=== PATIENT | female | born 1990 | race Caucasian/White ===

== ENCOUNTER 2023-10-31 07:56 | Emergency (ER) | payer OTHER ==
[2023-10-31] MEDS: MORPHINE 2 MG/ML CARPUJECT IVP STA (08:19)
--- NOTE | 2023-10-31 09:06 | XRAY Report ---
PROCEDURE: Mandible 4+V BL INDICATIONS: R jaw pain/concern for dislocation TECHNIQUE: 4 views of the mandible were acquired. COMPARISON: None FINDINGS: Bones: No fractures. Suggestion of unilateral anterior subluxation of one of the mandibular condyles at the TMJ joint. No suspicious bony lesions. Soft tissues: Visualized sinuses appear clear. No suspicious soft tissue densities. IMPRESSION: Suggestion of the lateral subluxation of one of the mandibular condyles at the TMJ joint (likely the right side) Comment: Consider TMJ protocol MRI. Reviewed by: Rafael Hernández MD on 10/31/2023 9:05 AM PDT Approved by: Rafael Hernández MD on 10/31/2023 9:05 AM PDT Station ID: [id number]
[2023-10-31] MEDS: PROPOFOL 200 MG/20 ML VIAL IVP STA (09:30)
--- NOTE | 2023-10-31 09:51 | ED Physician Documentation ---
PD HPI HEENT - Stated complaint Stated Complaint: LOCK JAW - Chief complaint Chief Complaint: Heent - History obtained from History obtained from: Patient - Additional information Additional information: Patient is a 33-year-old female with no significant past medical history presenting for evaluation of right jaw pain starting 2 hours ago. Patient states she yawned this morning and felt discomfort in her right jaw and has not been able to close her mouth since. She has had this happen before but usually goes away after a few minutes.No trauma. Review of Systems Constitutional: denies: Fever Throat: reports: Other (Jaw pain) Cardiac: denies: Chest pain / pressure Respiratory: denies: Dyspnea PD PAST MEDICAL HISTORY - Past Medical History Past Medical History: No - Past Surgical History Past Surgical History: No - Allergies Allergies/Adverse Reactions: Allergies Allergy/AdvReac Type Severity Reaction Status Date / Time No Known Drug Allergies Allergy Verified 10/31/23 08:05 - Social History Does the pt smoke?: No Smoking Status: Never smoker Does the pt drink ETOH?: Yes Does the pt have substance abuse?: No - Immunizations Immunizations are current?: Yes PD ED PE NORMAL - General General: Alert and oriented X 3, No acute distress, Well developed/nourished - HEENT HEENT: Moist mucous membranes, Pharynx benign, Other (Tender night deformity present with asymmetry of the mandible, tenderness over the coronoid process of the right mandibular) - Neck Neck: Supple, no meningeal sign - Cardiac Cardiac: RRR - Respiratory Respiratory: No respiratory distress, Clear bilaterally - Derm Derm: Warm and dry Results - Vitals Vitals: Vital Signs - 24 hr 10/31/23 10/31/23 10/31/23 08:02 09:25 09:35 Temperature 36.7 C Heart Rate 74 76 94 Respiratory 16 18 22 Rate Blood Pressure 122/89 H 146/117 H 149/84 H O2 Saturation 99 100 100 If not protocol 2 2 : Oxygen Flow, liters/minute 10/31/23 10/31/23 10/31/23 09:40 09:44 09:59 Temperature Heart Rate 94 90 62 Respiratory 18 16 18 Rate Blood Pressure 118/107 H 117/81 H O2 Saturation 98 100 If not protocol : Oxygen Flow, liters/minute Oxygen O2 Source Room air Procedures - Reduction Body part reduced: Right, Other (Mandible) Fracture or dislocation: Dislocation Anesthesia: Morphine, Other (Propofol) Reduction aftercare: Alignment improved, Patient tolerated well - Procedural sedation Sedation prep: Informed consent, Time out completed, Last meal, PE performed, ASA 1 - healthy Sedation Medications: propofol (130mg) Mallampati classification: II Patient status during sedation: Drowsy, Responds to tactile Sedation recovery: Recovered uneventfully Time in sedation (Minutes): 10 PD Medical Decision Making - ED course Complexity details: reviewed results, re-evaluated patient, d/w patient ED course: Patient presenting with right-sided jaw pain after yawning and unable to close her mouth. Suspect dislocation which was confirmed with x-rays that I reviewed. Patient was given IV morphine for pain. Patient unable to tolerate Attempts at reduction with syringe technique or extraoral pressure. Therefore she was consented for procedural deep sedation. Patient received 130 mg total of propofol with successful reduction of jaw dislocation. She is able to close her mouth fully and speak normally. Her teeth feel aligned. She does have a small abrasion to the right lower lip. Discussed precautions given her jaw dislocation today and need for follow-up. Patient and has been advised on concerning symptoms to return for. Departure - Departure Disposition: 01 Home, Self Care Clinical Impression: Dislocated mandible Condition: Stable Instructions: ED Sedation Procedural Discon, ED Dislocation Mandible Comments: Kirbi - You were treated for a jaw dislocation on the right side. In order to reduce the dislocation we did have to give you medicine to make you sleepy. For the next 1 to 2 weeks I would recommend a soft diet so that you are not needing to chew your food as much. In addition you should take any anti-inflammatory such as Ibuprofen or naproxen with food for the next few days to help with inflammation and discomfort. It is important that you avoid any movements that could cause another dislocation. Follow-up with your primary care provider. Return to the ER with any worsening symptoms. Forms: PCP List, Activity restrictions
[2023-10-31] MEDS: KETOROLAC 30 MG/ML VIAL IVP STA (09:58)
[2023-10-31 10:06] VITALS: BP 117/81; O2SAT 100
== END 2023-10-31 10:12 | disposition home or self-care (01) ==
LOC: ED 07:56
DX: S03.01XA Dislocation of jaw, right side, initial encounter (principal); S00.511A Abrasion of lip, initial encounter; X58.XXXA Exposure to other specified factors, initial encounter; Y93.89 Activity, other specified
CPT/HCPCS: 21451; 99152; 99283